=== PATIENT | female | born 1995 | race Hispanic/Latino ===

== ENCOUNTER 2018-03-29 20:59 | Emergency (ER) | payer OTHER ==
[2018-03-29 21:19] VITALS: BP 132/74; PULSE 80; RESP 18; TEMP 98.3; O2SAT 99
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
== END 2018-03-29 23:07 | disposition home or self-care (01) ==
LOC: H.ER 20:59
DX: S09.90XA Unspecified injury of head, initial encounter (principal); M54.9 Dorsalgia, unspecified; V43.62XA Car passenger injured in collision with other type car in traffic accident, initial encounter; M41.9 Scoliosis, unspecified